=== PATIENT | female | born 1990 | race Caucasian/White ===

== ENCOUNTER 2022-08-29 14:52 | Emergency (ER) | payer OTHER ==
[~2022-08-29] VITALS: Ht 167.6 cm; Wt 75.0 kg
[2022-08-29] MEDS ORDERED: ATROPINE SULF 0.4 MG/ML 1ML VIAL (J0461) IV STA (15:24)
[2022-08-29] MEDS ORDERED: propofoL 200 MG/20 ML VIAL IV.PROC PRN (15:25)
[2022-08-29] MEDS ORDERED: MORPHINE 4 MG/ML 1ML VIAL/SYRINGE IV PRN (15:25)
[2022-08-29] MEDS ORDERED: ONDANSETRON 4MG 2ML VIAL IV ONE (15:25)
[2022-08-29] MEDS: NS 1,000 ML IV SCH ×2 (16:06→19:30)
[2022-08-29] MEDS ORDERED: NS 1,000 ML IV SCH (19:00)
[2022-08-29 19:43] VITALS: BP 136/74
== END 2022-08-29 20:19 | disposition short-term general hospital (02) ==
LOC: EDBD 14:52 → M ED 16:52
DX: S82.855A Nondisplaced trimalleolar fracture of left lower leg, initial encounter for closed fracture (principal); S93.05XA Dislocation of left ankle joint, initial encounter; W01.0XXA Fall on same level from slipping, tripping and stumbling without subsequent striking against object, initial encounter; Y92.009 Unspecified place in unspecified non-institutional (private) residence as the place of occurrence of the external cause; Z88.1 Allergy status to other antibiotic agents; Z88.8 Allergy status to other drugs, medicaments and biological substances
CPT/HCPCS: 27816; 73600; 73700; 87486; 87581; 87633; 87798; 93041; 94760; 96361; 96374; 96375; 99152; 99285; J2270; J2405